=== PATIENT | female | born 1970 | race African-American/Black ===

== ENCOUNTER 2017-06-02 00:14 | Inpatient (IN) | payer MEDICAID, OTHER ==
[2017-06-02] VITALS (43 sets, daily range): BP systolic 43–115; BP diastolic 22–79
[~2017-06-02] VITALS: Ht 172.7 cm; Wt 95.7 kg
[~2017-06-02 00:14] MED LIST: CALC-1232 PO; DIPH25CA83 PO; FERR325T23 PO; FOLI-43 PO; LACT10SO6 MT; LORA-250; PROT40 PO; RISP1 PO; Thiamine Hcl PO
[2017-06-02 01:20] LABS: CLARITY URINE TURBID (CLEAR); COLOR URINE DARK YELLOW (YELLOW); GLUCOSE URINE NEGATIVE (NEGATIVE); KETONES URINE NEGATIVE (NEGATIVE); LEUKOCYTE ESTERASE URINE 3+ (NEGATIVE); NITRITE URINE POSITIVE (NEGATIVE); OCCULT BLOOD URINE 2+ (NEGATIVE); PROTEIN URINE 2+ (NEGATIVE); SPECIFIC GRAVITY URINE 1.014 (1.005-1.030); UROBILINOGEN URINE 0.2 E.U./dL (0.2-1.0)
[2017-06-02 01:31] LABS: HEMATOCRIT. 21.1 % (36.0-48.0); HEMOGLOBIN. 7.2 g/dL (12.0-16.0); MEAN CORPUSCULAR HEMOGLOBIN 27.6 pg (28.0-32.0); MEAN CORPUSCULAR VOLUME 80.6 fL (81.0-99.0); RED BLOOD CELL COUNT 2.62 mill/uL (4.2-5.4); RED CELL DISTRIBUTION WIDTH 23.7 % (11.6-14.6)
[2017-06-02 01:38] LABS: PARTIAL THROMBOPLASTIN TIME 53.1 sec (23.4-31.0); PROTHROMBIN TIME 21.4 sec (9.4-11.6)
[2017-06-02 01:44] LABS: CARBON DIOXIDE 14 mEq/L (21-32); CHLORIDE 115 mEq/L (98-107); TROPONIN I < 0.02 ng/mL (0.00-0.04)
[2017-06-02] MEDS ORDERED: DEXT 5%/0.45% NACL 1000ML 1,000 ML IV ONE (01:58)
[2017-06-02 01:59] LABS: AMMONIA 115 uMol/L (<32)
[2017-06-02] MEDS ORDERED: CEFTRIAXONE 1 G PREMIX 50 ML IV ONE (03:00)
[2017-06-02] MEDS ORDERED: LACTULOSE 20G/30ML UDC NG ONE (03:00)
[2017-06-02 05:43] LABS: NUCLEATED RED BLOOD CELLS 2 /100 WBC
[2017-06-02 05:49] LABS: PLATELET ESTIMATE NORMAL
[2017-06-02 05:51] LABS: PLATELET 206 x1000/uL (130-400)
[2017-06-02 05:52] LABS: MEAN PLATELET VOLUME 9.5 fl (7.4-10.4)
[2017-06-02] MEDS ORDERED: SODIUM CHLORIDE 0.9% 1,000 ML IV ONE (06:45)
[2017-06-02] MEDS ORDERED: LACTULOSE 20G/30ML UDC PO SCH (09:00)
[2017-06-02] MEDS ORDERED: SODIUM CHLORIDE 0.9% 1000ML BAG (SEPSIS BOLUS) IV ONE (09:15)
[2017-06-02] MEDS: RIFAXIMIN 550 MG TABLET PO SCH ×2 (09:29→16:44)
[2017-06-02] MEDS ORDERED: ALBUMIN HUMAN 25GM/100ML (25%) IV ONE (09:30)
[2017-06-02 09:39] LABS: BASOPHILS % 0.6 % (0.0-2.0); EOSINOPHILS % 0.7 % (0.0-5.0); LYMPHOCYTES % 18.1 % (20.0-50.0); MEAN CORPUSCULAR HEMOGLOBIN 27.9 pg (28.0-32.0); MEAN CORPUSCULAR VOLUME 79.9 fL (81.0-99.0); MEAN PLATELET VOLUME 8.5 fl (7.4-10.4); MONOCYTES % 7.4 % (2.0-8.0); NEUTROPHILS % 73.2 % (40.0-76.0); PLATELET 154 x1000/uL (130-400); RED BLOOD CELL COUNT 2.48 mill/uL (4.2-5.4); RED CELL DISTRIBUTION WIDTH 22.8 % (11.6-14.6)
[2017-06-02] MEDS ORDERED: SODIUM CHLORIDE 0.9% 1000ML BAG (SEPSIS BOLUS) IV SCH (09:45)
[2017-06-02] MEDS: CITRIC ACID/SODIUM CITRATE SOLN 30ML UDC NG SCH ×3 (09:45→16:44)
[2017-06-02] MEDS: MIDODRINE HCL 5MG TABLET NG SCH ×3 (09:46→16:44)
[2017-06-02 09:50] LABS: HEMATOCRIT. 19.8 % (36.0-48.0); HEMOGLOBIN. 6.9 g/dL (12.0-16.0)
[2017-06-02] MEDS ORDERED: ALBUMIN HUMAN 25GM/100ML (25%) IV SCH (10:00)
[2017-06-02 10:01] LABS: BG BASE EXCESS -13.1 mmol/L (-2.0-2.0); BG CARBOXYHEMOGLOBIN 3.2 % (0.5-1.5); BG DEOXYHEMOGLOBIN 0.8 % (0.0-5.0); BG HCO3 ACT 11.4 mmol/L (22.0-26.0); BG METHEMOGLOBIN 0.5 % (0.0-1.5); BG OXYGEN SATURATION 99.2 % (92.0-98.5); BG OXYHEMOGLOBIN 95.5 % (94.0-97.0); BG PCO2 21.7 mmHg (35.0-45.0); BG PO2 142.9 mmHg (75.0-100.0); BG SAMPLE SITE RIGHT RADIAL; BG TOTAL HEMOGLOBIN 6.3 g/dL (12.0-18.0); BG VENT MODE NASAL CANNULA
[2017-06-02 10:12] LABS: CARBON DIOXIDE 14 mEq/L (21-32); CHLORIDE 117 mEq/L (98-107)
[2017-06-02] MEDS ORDERED: IPRATROPIUM/ALBUTEROL 0.5-3(2.5)MG/3ML NEB HHN PRN (10:15)
[2017-06-02] MEDS ORDERED: PANTOPRAZOLE 80 MG in SODIUM CHLORIDE 0.9% 100 ML IV SCH (10:30)
[2017-06-02 10:44] LABS: AMMONIA 179 uMol/L (<32)
[2017-06-02] MEDS ORDERED: LIDOCAINE HCL 1% 20ML VIAL (Pyxis) INJ ONE (10:57)
[2017-06-02] MEDS: CEFEPIME 1,000 MG in DEXTROSE 5% WATER 50 ML IV SCH (11:30)
[2017-06-02] MEDS: OCTREOTIDE ACETATE 50 MCG/ML 1ML IV SCH ×2 (11:42→22:07)
[2017-06-02] MEDS: PANTOPRAZOLE 80 MG in SODIUM CHLORIDE 0.9% 100 ML IV SCH ×2 (12:54→22:06)
[2017-06-02] MEDS: LACTULOSE 300 ML in WATER FOR INJECTION,STERILE 700 ML PR SCH (14:06)
[2017-06-02] MEDS ORDERED: DEXTROSE 50% WATER 50ML SYRINGE IV SCH (15:00)
[2017-06-02] MEDS: DEXT 5%/0.9% NACL 1,000 ML IV SCH (15:07)
[2017-06-02] MEDS: IPRATROPIUM/ALBUTEROL 0.5-3(2.5)MG/3ML NEB HHN SCH ×2 (15:40→20:36)
[2017-06-02 16:32] LABS: HEPATITIS B SURFACE ANTIGEN NEGATIVE
[2017-06-02 17:00] LABS: HEPATITIS B CORE AB IGM NEGATIVE
[2017-06-02 17:02] LABS: HEPATITIS A AB IGM NEGATIVE (NEGATIVE)
[2017-06-02 23:12] LABS: HEMATOCRIT 24.2 % (36.0-48.0); HEMOGLOBIN 8.1 g/dL (12.0-16.0)
[2017-06-03] VITALS (107 sets, daily range): BP systolic 79–140; BP diastolic 45–101
[2017-06-03] MEDS: NOREPINEPHRINE 4 MG in DEXT 5% WATER 246 ML IV PRN ×2 (00:31→21:53)
[2017-06-03] MEDS: DEXT 5%/0.9% NACL 1,000 ML IV SCH (00:59)
[2017-06-03] MEDS: IPRATROPIUM/ALBUTEROL 0.5-3(2.5)MG/3ML NEB HHN SCH ×4 (02:21→20:46)
[2017-06-03] MEDS: OCTREOTIDE ACETATE 50 MCG/ML 1ML IV SCH ×3 (05:27→22:59)
[2017-06-03 05:54] LABS: HEMATOCRIT 21.8 % (36.0-48.0); HEMOGLOBIN 7.6 g/dL (12.0-16.0); MEAN CORPUSCULAR HEMOGLOBIN 28.4 pg (28.0-32.0); MEAN CORPUSCULAR VOLUME 81.8 fL (81.0-99.0); PLATELET 150 x1000/uL (130-400); RED BLOOD CELL COUNT 2.66 mill/uL (4.2-5.4); RED CELL DISTRIBUTION WIDTH 22.1 % (11.6-14.6)
[2017-06-03] MEDS ORDERED: CEFTRIAXONE 1 G PREMIX 50 ML IV SCH (06:00)
[2017-06-03 06:33] LABS: AMMONIA 183 uMol/L (<32)
[2017-06-03 06:46] LABS: CARBON DIOXIDE 11 mEq/L (21-32); CHLORIDE 119 mEq/L (98-107)
[2017-06-03] MEDS ORDERED: POTASSIUM CHLORIDE 20MEQ/PACKET NG NR (08:00)
[2017-06-03] MEDS ORDERED: KCL 20MEQ/100ML PREMIX 100 ML IV ONE (08:15)
[2017-06-03 08:37] LABS: BG BASE EXCESS -12.4 mmol/L (-2.0-2.0); BG CARBOXYHEMOGLOBIN 4.1 % (0.5-1.5); BG DEOXYHEMOGLOBIN 0.4 % (0.0-5.0); BG FRACTION INSPIRED OXYGEN 36; BG HCO3 ACT 11.6 mmol/L (22.0-26.0); BG METHEMOGLOBIN 0.6 % (0.0-1.5); BG OXYGEN SATURATION 99.6 % (92.0-98.5); BG OXYHEMOGLOBIN 94.9 % (94.0-97.0); BG PCO2 20.4 mmHg (35.0-45.0); BG PH 7.373 (7.350-7.450); BG PO2 179.7 mmHg (75.0-100.0); BG SAMPLE SITE LEFT RADIAL; BG TOTAL HEMOGLOBIN 6.4 g/dL (12.0-18.0); BG VENT MODE NASAL CANNULA
[2017-06-03] MEDS: RIFAXIMIN 550 MG TABLET PO SCH ×2 (09:00→17:51)
[2017-06-03] MEDS: CITRIC ACID/SODIUM CITRATE SOLN 30ML UDC NG SCH ×3 (09:00→17:51)
[2017-06-03] MEDS: MIDODRINE HCL 5MG TABLET NG SCH ×3 (09:00→17:00)
[2017-06-03] MEDS ORDERED: DEXT 5%/0.45% NACL KCL 20MEQ/L 1,000 ML IV SCH (09:00)
[2017-06-03] MEDS: PANTOPRAZOLE 80 MG in SODIUM CHLORIDE 0.9% 100 ML IV SCH ×2 (09:18→21:53)
[2017-06-03] MEDS: POTASSIUM CHLORIDE IV SCH (09:19)
[2017-06-03] MEDS: DEXTROSE 5% IV SCH (09:19)
[2017-06-03] MEDS: WATER IV SCH (09:19)
[2017-06-03] MEDS: SODIUM BICARBONATE IV SCH (09:19)
[2017-06-03] MEDS ORDERED: POTASSIUM CHLORIDE INJ 40 MEQ in DEXT 5% WATER 250 ML IV NR (10:00)
[2017-06-03] MEDS: CEFEPIME 1,000 MG in DEXTROSE 5% WATER 50 ML IV SCH ×2 (10:08→10:16)
[2017-06-03 10:11] LABS: INR 1.7; PROTHROMBIN TIME 18.1 sec (9.4-11.6)
[2017-06-03 10:39] LABS: HEMATOCRIT 19.8 % (36.0-48.0)
[2017-06-03 13:07] LABS: A/G RATIO 0.5 (0.7-1.7); ALBUMIN 1.9 g/dL (2.9-4.4); ALPHA-1-GLOBULIN 0.1 g/dL (0.0-0.4); ALPHA-2-GLOBULIN 0.2 g/dL (0.4-1.0); BETA GLOBULIN 1.1 g/dL (0.7-1.3); GAMMA GLOBULINS 2.5 g/dL (0.4-1.8); GLOBULIN TOTAL 3.9 g/dL (2.2-3.9); M-SPIKE Not Observed g/dL (Not Observed); TOTAL PROTEIN SERUM 5.8 g/dL (6.0-8.5)
[2017-06-03] MEDS ORDERED: SODIUM BICARBONATE 4.2% 5 MEQ/10 ML DISP.SYRIN IV ONE (13:30)
[2017-06-03] MEDS ORDERED: LIDOCAINE HCL 1% 20ML VIAL (Pyxis) INJ ONE (13:30)
[2017-06-03] MEDS: LACTULOSE 300 ML in WATER FOR INJECTION,STERILE 700 ML PR SCH (14:19)
[2017-06-03] MEDS: MEROPENEM 1000MG in NORMAL SALINE 100ML IV SCH (14:53)
[2017-06-03] MEDS: LACTULOSE 20G/30ML UDC PO SCH (18:45)
[2017-06-04] VITALS (97 sets, daily range): BP systolic 85–134; BP diastolic 35–83
[2017-06-04] MEDS: SODIUM BICARBONATE IV SCH (00:15)
[2017-06-04] MEDS: WATER IV SCH (00:15)
[2017-06-04] MEDS: LACTULOSE 20G/30ML UDC PO SCH ×4 (00:15→17:15)
[2017-06-04] MEDS: POTASSIUM CHLORIDE IV SCH (00:15)
[2017-06-04] MEDS: MEROPENEM 1000MG in NORMAL SALINE 100ML IV SCH ×2 (00:15→12:42)
[2017-06-04] MEDS: DEXTROSE 5% IV SCH (00:15)
[2017-06-04] MEDS: IPRATROPIUM/ALBUTEROL 0.5-3(2.5)MG/3ML NEB HHN SCH ×4 (01:59→21:15)
[2017-06-04 05:48] LABS: BASOPHILS % 0.3 % (0.0-2.0); EOSINOPHILS % 1.3 % (0.0-5.0); HEMOGLOBIN. 8.5 g/dL (12.0-16.0); LYMPHOCYTES % 15.4 % (20.0-50.0); MEAN CORPUSCULAR HEMOGLOBIN 29.4 pg (28.0-32.0); MEAN CORPUSCULAR VOLUME 83.2 fL (81.0-99.0); MEAN PLATELET VOLUME 9.5 fl (7.4-10.4); PLATELET 146 x1000/uL (130-400); RED BLOOD CELL COUNT 2.88 mill/uL (4.2-5.4); RED CELL DISTRIBUTION WIDTH 20.5 % (11.6-14.6)
[2017-06-04 06:13] LABS: CARBON DIOXIDE 14 mEq/L (21-32); CHLORIDE 119 mEq/L (98-107); PHOSPHORUS 3.4 mg/dL (2.5-4.9)
[2017-06-04] MEDS: OCTREOTIDE ACETATE 50 MCG/ML 1ML IV SCH ×3 (06:53→21:47)
[2017-06-04] MEDS: PANTOPRAZOLE 80 MG in SODIUM CHLORIDE 0.9% 100 ML IV SCH ×2 (06:57→16:40)
[2017-06-04 07:18] LABS: ALBUMIN URINE Note: % (.); TOTAL PROTEIN RANDOM URINE 101.4 mg/dL (Not Estab.)
[2017-06-04 07:20] LABS: AMMONIA 149 uMol/L (<32)
[2017-06-04] MEDS: RIFAXIMIN 550 MG TABLET PO SCH ×2 (08:29→17:15)
[2017-06-04] MEDS: CITRIC ACID/SODIUM CITRATE SOLN 30ML UDC NG SCH ×3 (08:29→17:15)
[2017-06-04] MEDS: FLUCONAZOLE 200 MG/100ML BAG 100 ML IV SCH (08:29)
[2017-06-04] MEDS: MIDODRINE HCL 5MG TABLET NG SCH ×3 (08:30→17:15)
[2017-06-04] MEDS ORDERED: POTASSIUM CHLORIDE 20MEQ/PACKET PO SCH (08:45)
[2017-06-04] MEDS: LACTULOSE 300 ML in WATER FOR INJECTION,STERILE 700 ML PR SCH (09:21)
[2017-06-04] MEDS: DEXT 5%/0.45% NACL KCL 40MEQ/L 1,000 ML IV SCH (10:55)
[2017-06-04] MEDS ORDERED: SORBITOL 70% SOLN 30ML PO NR (17:00)
[2017-06-04] MEDS: FOLIC ACID 1MG TABLET PO SCH (17:15)
[2017-06-04] MEDS: THIAMINE HCL 100MG TABLET PO SCH (17:15)
[2017-06-04] MEDS: MULTIVITAMINS,THER W-MINERALS TABLET PO SCH (17:17)
[2017-06-04] MEDS: NOREPINEPHRINE 4 MG in DEXT 5% WATER 246 ML IV PRN (17:35)
[2017-06-04 18:15] LABS: T4 FREE 0.68 ng/dL (0.76-1.46)
[2017-06-04 18:44] LABS: VITAMIN B12 SERUM > 2000 pg/mL (211-911)
[2017-06-04] MEDS: LEVETIRACETAM 500 MG in SODIUM CHLORIDE 0.9% 100 ML IV SCH (21:14)
[2017-06-05] VITALS (85 sets, daily range): BP systolic 86–153; BP diastolic 27–105
[2017-06-05] MEDS: LACTULOSE 20G/30ML UDC PO SCH ×4 (00:50→16:53)
[2017-06-05] MEDS: NOREPINEPHRINE 4 MG in DEXT 5% WATER 246 ML IV PRN ×2 (00:51→18:17)
[2017-06-05] MEDS: PANTOPRAZOLE 80 MG in SODIUM CHLORIDE 0.9% 100 ML IV SCH ×3 (00:51→22:14)
[2017-06-05] MEDS: MEROPENEM 1000MG in NORMAL SALINE 100ML IV SCH ×2 (00:54→14:00)
[2017-06-05] MEDS: IPRATROPIUM/ALBUTEROL 0.5-3(2.5)MG/3ML NEB HHN SCH ×4 (03:15→20:27)
[2017-06-05 04:58] LABS: HEMATOCRIT. 23.6 % (36.0-48.0); HEMOGLOBIN. 8.4 g/dL (12.0-16.0); MEAN CORPUSCULAR HEMOGLOBIN 29.2 pg (28.0-32.0); RED BLOOD CELL COUNT 2.87 mill/uL (4.2-5.4); RED CELL DISTRIBUTION WIDTH 21.2 % (11.6-14.6)
[2017-06-05 05:00] LABS: AMMONIA 84 uMol/L (<32)
[2017-06-05 05:14] LABS: CARBON DIOXIDE 18 mEq/L (21-32); CHLORIDE 124 mEq/L (98-107); PHOSPHORUS 2.8 mg/dL (2.5-4.9)
[2017-06-05] MEDS: DEXT 5%/0.45% NACL KCL 40MEQ/L 1,000 ML IV SCH (05:19)
[2017-06-05] MEDS: OCTREOTIDE ACETATE 50 MCG/ML 1ML IV SCH ×2 (05:19→14:52)
[2017-06-05] MEDS ORDERED: ALBUMIN HUMAN 25GM/100ML (25%) IV NR (08:15)
[2017-06-05] MEDS ORDERED: DEXT 5% WATER + KCL 40MEQ/L 1,000 ML IV SCH (08:15)
[2017-06-05] MEDS: FLUCONAZOLE 200 MG/100ML BAG 100 ML IV SCH (09:00)
[2017-06-05] MEDS: RIFAXIMIN 550 MG TABLET PO SCH ×2 (09:41→16:52)
[2017-06-05] MEDS: FOLIC ACID 1MG TABLET PO SCH (09:41)
[2017-06-05] MEDS: MIDODRINE HCL 5MG TABLET NG SCH ×3 (09:42→16:53)
[2017-06-05] MEDS: MULTIVITAMINS,THER W-MINERALS TABLET PO SCH (09:42)
[2017-06-05] MEDS: THIAMINE HCL 100MG TABLET PO SCH (09:42)
[2017-06-05] MEDS: CITRIC ACID/SODIUM CITRATE SOLN 30ML UDC NG SCH ×3 (09:43→16:53)
[2017-06-05] MEDS: LEVETIRACETAM 500 MG in SODIUM CHLORIDE 0.9% 100 ML IV SCH ×2 (09:43→22:14)
[2017-06-05] MEDS: POTASSIUM CHLORIDE INJ 40 MEQ in DEXTROSE 5% WATER 1,000 ML IV SCH (10:13)
[2017-06-05 12:09] LABS: PLATELET ESTIMATE SLIGHTLY DECREASED
[2017-06-05 12:10] LABS: PLATELET 129 x1000/uL (130-400)
[2017-06-05] MEDS: OCTREOTIDE ACETATE 50 MCG/ML 1ML SUBCUT SCH (22:14)
[2017-06-06] VITALS (69 sets, daily range): BP systolic 97–126; BP diastolic 53–83
[2017-06-06] MEDS: LACTULOSE 20G/30ML UDC PO SCH ×5 (00:39→23:38)
[2017-06-06] MEDS: MEROPENEM 1000MG in NORMAL SALINE 100ML IV SCH ×2 (00:39→13:33)
[2017-06-06] MEDS: IPRATROPIUM/ALBUTEROL 0.5-3(2.5)MG/3ML NEB HHN SCH ×4 (00:44→20:24)
[2017-06-06 05:40] LABS: HEMATOCRIT. 25.7 % (36.0-48.0); HEMOGLOBIN. 8.9 g/dL (12.0-16.0); MEAN CORPUSCULAR HEMOGLOBIN 28.7 pg (28.0-32.0); MEAN CORPUSCULAR VOLUME 83.1 fL (81.0-99.0); RED BLOOD CELL COUNT 3.09 mill/uL (4.2-5.4); RED CELL DISTRIBUTION WIDTH 22.7 % (11.6-14.6)
[2017-06-06] MEDS: PANTOPRAZOLE 80 MG in SODIUM CHLORIDE 0.9% 100 ML IV SCH ×3 (05:52→20:37)
[2017-06-06] MEDS: POTASSIUM CHLORIDE INJ 40 MEQ in DEXTROSE 5% WATER 1,000 ML IV SCH ×2 (05:52→23:38)
[2017-06-06 06:11] LABS: CARBON DIOXIDE 20 mEq/L (21-32); CHLORIDE 124 mEq/L (98-107); PHOSPHORUS 2.5 mg/dL (2.5-4.9)
[2017-06-06 07:04] LABS: AMMONIA 71 uMol/L (<32)
[2017-06-06] MEDS: OCTREOTIDE ACETATE 50 MCG/ML 1ML SUBCUT SCH ×3 (07:24→22:36)
[2017-06-06] MEDS: FLUCONAZOLE 200 MG/100ML BAG 100 ML IV SCH (08:39)
[2017-06-06] MEDS: CITRIC ACID/SODIUM CITRATE SOLN 30ML UDC NG SCH ×3 (09:55→18:26)
[2017-06-06] MEDS: LEVETIRACETAM 500 MG in SODIUM CHLORIDE 0.9% 100 ML IV SCH ×2 (09:55→21:54)
[2017-06-06] MEDS: MIDODRINE HCL 5MG TABLET NG SCH ×3 (09:55→17:40)
[2017-06-06] MEDS: THIAMINE HCL 100MG TABLET PO SCH (09:56)
[2017-06-06] MEDS: MULTIVITAMINS,THER W-MINERALS TABLET PO SCH (09:56)
[2017-06-06] MEDS: RIFAXIMIN 550 MG TABLET PO SCH ×2 (09:56→17:39)
[2017-06-06] MEDS: FOLIC ACID 1MG TABLET PO SCH (09:56)
[2017-06-06 10:21] LABS: NUCLEATED RED BLOOD CELLS 2 /100 WBC
[2017-06-06 10:22] LABS: MEAN PLATELET VOLUME 9.7 fl (7.4-10.4); PLATELET ESTIMATE NORMAL
[2017-06-06 10:23] LABS: PLATELET 123 x1000/uL (130-400)
[2017-06-06] MEDS: NOREPINEPHRINE 4 MG in DEXT 5% WATER 246 ML IV PRN (10:36)
[2017-06-07] VITALS (56 sets, daily range): BP systolic 97–127; BP diastolic 53–84
[2017-06-07] MEDS: MEROPENEM 1000MG in NORMAL SALINE 100ML IV SCH ×2 (00:13→12:55)
[2017-06-07] MEDS: IPRATROPIUM/ALBUTEROL 0.5-3(2.5)MG/3ML NEB HHN SCH ×4 (02:36→20:25)
[2017-06-07] MEDS: LACTULOSE 20G/30ML UDC PO SCH ×4 (05:19→23:06)
[2017-06-07] MEDS: OCTREOTIDE ACETATE 50 MCG/ML 1ML SUBCUT SCH ×2 (05:19→13:25)
[2017-06-07 07:03] LABS: CARBON DIOXIDE 24 mEq/L (21-32); CHLORIDE 125 mEq/L (98-107); PHOSPHORUS 2.3 mg/dL (2.5-4.9)
[2017-06-07 07:08] LABS: AMMONIA 49 uMol/L (<32)
[2017-06-07 07:52] LABS: BASOPHILS % 0.6 % (0.0-2.0); EOSINOPHILS % 1.3 % (0.0-5.0); HEMATOCRIT. 23.6 % (36.0-48.0); HEMOGLOBIN. 8.1 g/dL (12.0-16.0); LYMPHOCYTES % 16.2 % (20.0-50.0); MEAN CORPUSCULAR HEMOGLOBIN 28.4 pg (28.0-32.0); MEAN CORPUSCULAR VOLUME 82.5 fL (81.0-99.0); NEUTROPHILS % 72.9 % (40.0-76.0); RED BLOOD CELL COUNT 2.86 mill/uL (4.2-5.4)
[2017-06-07] MEDS: FLUCONAZOLE 200 MG/100ML BAG 100 ML IV SCH (08:00)
[2017-06-07] MEDS: RIFAXIMIN 550 MG TABLET PO SCH ×2 (09:00→17:04)
[2017-06-07] MEDS: MIDODRINE HCL 5MG TABLET NG SCH ×3 (09:00→17:08)
[2017-06-07] MEDS: MULTIVITAMINS,THER W-MINERALS TABLET PO SCH (09:00)
[2017-06-07] MEDS: THIAMINE HCL 100MG TABLET PO SCH (09:00)
[2017-06-07] MEDS: LEVETIRACETAM 500 MG in SODIUM CHLORIDE 0.9% 100 ML IV SCH ×2 (09:00→21:46)
[2017-06-07] MEDS: CITRIC ACID/SODIUM CITRATE SOLN 30ML UDC NG SCH ×3 (09:00→17:04)
[2017-06-07] MEDS: FOLIC ACID 1MG TABLET PO SCH (09:00)
[2017-06-07] MEDS: PANTOPRAZOLE 80 MG in SODIUM CHLORIDE 0.9% 100 ML IV SCH (10:06)
[2017-06-07 10:36] LABS: PLATELET ESTIMATE SLIGHTLY DECREASED
[2017-06-07 10:37] LABS: MEAN PLATELET VOLUME 10.4 fl (7.4-10.4); PLATELET 118 x1000/uL (130-400)
[2017-06-07] MEDS ORDERED: ALBUMIN HUMAN 25GM/100ML (25%) IV NR (13:15)
[2017-06-07] MEDS: POTASSIUM CHLORIDE INJ 40 MEQ in DEXT 5%/0.2% NACL 1,000 ML IV SCH (14:00)
[2017-06-07] MEDS ORDERED: POTASSIUM PHOS,M-BASIC-D-BASIC 20 MMOL in DEXT 5% WATER 243.3333 ML IV NR (15:00)
[2017-06-08] VITALS (38 sets, daily range): BP systolic 98–133; BP diastolic 54–87
[2017-06-08] MEDS: OCTREOTIDE ACETATE 50 MCG/ML 1ML SUBCUT SCH ×4 (00:03→22:01)
[2017-06-08] MEDS: POTASSIUM CHLORIDE INJ 40 MEQ in DEXT 5%/0.2% NACL 1,000 ML IV SCH (00:03)
[2017-06-08] MEDS: MEROPENEM 1000MG in NORMAL SALINE 100ML IV SCH ×2 (00:06→12:56)
[2017-06-08] MEDS: PANTOPRAZOLE 80 MG in SODIUM CHLORIDE 0.9% 100 ML IV SCH ×3 (01:27→19:46)
[2017-06-08] MEDS: IPRATROPIUM/ALBUTEROL 0.5-3(2.5)MG/3ML NEB HHN SCH ×4 (01:38→20:43)
[2017-06-08] MEDS: LACTULOSE 20G/30ML UDC PO SCH ×4 (05:25→23:28)
[2017-06-08 06:21] LABS: BASOPHILS % 0.9 % (0.0-2.0); EOSINOPHILS % 1.9 % (0.0-5.0); HEMATOCRIT. 21.5 % (36.0-48.0); HEMOGLOBIN. 7.4 g/dL (12.0-16.0); LYMPHOCYTES % 15.8 % (20.0-50.0); MEAN CORPUSCULAR HEMOGLOBIN 28.7 pg (28.0-32.0); MEAN CORPUSCULAR VOLUME 83.6 fL (81.0-99.0); MONOCYTES % 8.5 % (2.0-8.0); NEUTROPHILS % 72.9 % (40.0-76.0); RED BLOOD CELL COUNT 2.58 mill/uL (4.2-5.4); RED CELL DISTRIBUTION WIDTH 22.8 % (11.6-14.6)
[2017-06-08 06:34] LABS: PHOSPHORUS 2.9 mg/dL (2.5-4.9)
[2017-06-08 06:37] LABS: AMMONIA 42 uMol/L (<32)
[2017-06-08] MEDS: FLUCONAZOLE 200 MG/100ML BAG 100 ML IV SCH (08:00)
[2017-06-08] MEDS: LEVETIRACETAM 500 MG in SODIUM CHLORIDE 0.9% 100 ML IV SCH ×2 (09:00→21:00)
[2017-06-08] MEDS: CITRIC ACID/SODIUM CITRATE SOLN 30ML UDC NG SCH ×3 (09:00→16:59)
[2017-06-08] MEDS: DEXT 5% WATER + KCL 20MEQ/L 1,000 ML IV SCH ×2 (09:00→23:54)
[2017-06-08] MEDS: RIFAXIMIN 550 MG TABLET PO SCH ×2 (09:00→17:00)
[2017-06-08] MEDS: MIDODRINE HCL 5MG TABLET NG SCH ×3 (09:00→16:59)
[2017-06-08] MEDS: MULTIVITAMINS,THER W-MINERALS TABLET PO SCH (09:00)
[2017-06-08] MEDS: THIAMINE HCL 100MG TABLET PO SCH (09:00)
[2017-06-08] MEDS: FOLIC ACID 1MG TABLET PO SCH (09:00)
[2017-06-08 12:32] LABS: PLATELET 128 x1000/uL (130-400)
[2017-06-09] VITALS (55 sets, daily range): BP systolic 89–151; BP diastolic 23–100
[2017-06-09] MEDS: MEROPENEM 1000MG in NORMAL SALINE 100ML IV SCH ×2 (00:53→12:33)
[2017-06-09] MEDS: IPRATROPIUM/ALBUTEROL 0.5-3(2.5)MG/3ML NEB HHN SCH ×3 (02:23→20:25)
[2017-06-09] MEDS: PANTOPRAZOLE 80 MG in SODIUM CHLORIDE 0.9% 100 ML IV SCH ×2 (05:24→15:29)
[2017-06-09] MEDS: LACTULOSE 20G/30ML UDC PO SCH ×3 (05:30→18:05)
[2017-06-09] MEDS: OCTREOTIDE ACETATE 50 MCG/ML 1ML SUBCUT SCH ×3 (05:30→21:16)
[2017-06-09 06:27] LABS: BASOPHILS % 1.1 % (0.0-2.0); EOSINOPHILS % 2.4 % (0.0-5.0); HEMOGLOBIN. 7.9 g/dL (12.0-16.0); LYMPHOCYTES % 16.9 % (20.0-50.0); MEAN CORPUSCULAR HEMOGLOBIN 28.4 pg (28.0-32.0); MEAN CORPUSCULAR VOLUME 82.5 fL (81.0-99.0); MEAN PLATELET VOLUME 9.5 fl (7.4-10.4); MONOCYTES % 7.9 % (2.0-8.0); NEUTROPHILS % 71.7 % (40.0-76.0); PLATELET 108 x1000/uL (130-400); RED BLOOD CELL COUNT 2.79 mill/uL (4.2-5.4); RED CELL DISTRIBUTION WIDTH 22.6 % (11.6-14.6)
[2017-06-09 06:29] LABS: AMMONIA 41 uMol/L (<32)
[2017-06-09 06:31] LABS: INR 2.4; PARTIAL THROMBOPLASTIN TIME 50.2 sec (23.4-31.0); PROTHROMBIN TIME 24.8 sec (9.4-11.6)
[2017-06-09 07:54] LABS: CARBON DIOXIDE 22 mEq/L (21-32); CHLORIDE 125 mEq/L (98-107)
[2017-06-09] MEDS: CITRIC ACID/SODIUM CITRATE SOLN 30ML UDC NG SCH ×3 (09:54→18:08)
[2017-06-09] MEDS: FOLIC ACID 1MG TABLET PO SCH (09:55)
[2017-06-09] MEDS: RIFAXIMIN 550 MG TABLET PO SCH ×2 (09:55→18:05)
[2017-06-09] MEDS: MULTIVITAMINS,THER W-MINERALS TABLET PO SCH (09:55)
[2017-06-09] MEDS: THIAMINE HCL 100MG TABLET PO SCH (09:55)
[2017-06-09] MEDS: MIDODRINE HCL 5MG TABLET NG SCH ×3 (09:55→18:05)
[2017-06-09] MEDS: DEXTROSE 5% WATER 1,000 ML IV SCH ×2 (09:58→19:55)
[2017-06-09] MEDS: FLUCONAZOLE 200 MG/100ML BAG 100 ML IV SCH (09:59)
[2017-06-09] MEDS: LEVETIRACETAM 500 MG in SODIUM CHLORIDE 0.9% 100 ML IV SCH ×2 (09:59→21:16)
[2017-06-09] MEDS ORDERED: PHYTONADIONE 10MG/ML AMP SUBCUT NR (10:00)
[2017-06-09 18:51] LABS: PROTHROMBIN TIME 20.4 sec (9.4-11.6)
[2017-06-09] MEDS ORDERED: PHYTONADIONE 10MG/ML AMP SUBCUT SCH (21:45)
[2017-06-10] VITALS (63 sets, daily range): BP systolic 83–146; BP diastolic 35–87
[2017-06-10] MEDS: LACTULOSE 20G/30ML UDC PO SCH ×4 (00:52→17:05)
[2017-06-10] MEDS: PANTOPRAZOLE 80 MG in SODIUM CHLORIDE 0.9% 100 ML IV SCH (00:53)
[2017-06-10] MEDS: MEROPENEM 1000MG in NORMAL SALINE 100ML IV SCH ×2 (00:53→14:48)
[2017-06-10] MEDS: IPRATROPIUM/ALBUTEROL 0.5-3(2.5)MG/3ML NEB HHN SCH ×4 (01:41→20:46)
[2017-06-10 05:58] LABS: BASOPHILS % 1.1 % (0.0-2.0); EOSINOPHILS % 2.7 % (0.0-5.0); LYMPHOCYTES % 19.5 % (20.0-50.0); MEAN CORPUSCULAR HEMOGLOBIN 29.5 pg (28.0-32.0); MEAN CORPUSCULAR VOLUME 82.1 fL (81.0-99.0); MEAN PLATELET VOLUME 9.9 fl (7.4-10.4); MONOCYTES % 11.5 % (2.0-8.0); NEUTROPHILS % 65.2 % (40.0-76.0); PLATELET 93 x1000/uL (130-400); RED BLOOD CELL COUNT 2.31 mill/uL (4.2-5.4); RED CELL DISTRIBUTION WIDTH 22.2 % (11.6-14.6)
[2017-06-10] MEDS: DEXTROSE 5% WATER 1,000 ML IV SCH ×2 (05:58→14:48)
[2017-06-10] MEDS: OCTREOTIDE ACETATE 50 MCG/ML 1ML SUBCUT SCH (05:58)
[2017-06-10 06:00] LABS: INR 1.8; PARTIAL THROMBOPLASTIN TIME 41.5 sec (23.4-31.0); PROTHROMBIN TIME 18.8 sec (9.4-11.6)
[2017-06-10] MEDS ORDERED: PHYTONADIONE 10MG/ML AMP SUBCUT SCH (06:00)
[2017-06-10 06:14] LABS: HEMOGLOBIN. 6.8 g/dL (12.0-16.0)
[2017-06-10 06:35] LABS: AMMONIA 37 uMol/L (<32)
[2017-06-10 07:01] LABS: CHLORIDE 122 mEq/L (98-107)
[2017-06-10 07:11] LABS: CARBON DIOXIDE 23 mEq/L (21-32)
[2017-06-10] MEDS: MULTIVITAMINS,THER W-MINERALS TABLET PO SCH ×2 (08:24→14:32)
[2017-06-10] MEDS: RIFAXIMIN 550 MG TABLET PO SCH ×2 (08:24→17:05)
[2017-06-10] MEDS: THIAMINE HCL 100MG TABLET PO SCH ×2 (08:24→14:32)
[2017-06-10] MEDS: MIDODRINE HCL 5MG TABLET NG SCH ×3 (08:25→17:06)
[2017-06-10] MEDS: FOLIC ACID 1MG TABLET PO SCH ×2 (08:25→14:32)
[2017-06-10] MEDS: CITRIC ACID/SODIUM CITRATE SOLN 30ML UDC NG SCH ×3 (08:25→17:05)
[2017-06-10] MEDS: LEVETIRACETAM 500 MG in SODIUM CHLORIDE 0.9% 100 ML IV SCH ×2 (09:18→21:26)
[2017-06-10] MEDS: FLUCONAZOLE 200 MG/100ML BAG 100 ML IV SCH (09:18)
[2017-06-10] MEDS ORDERED: LIDOCAINE HCL 1% 20ML VIAL (Pyxis) INJ ONE (13:22)
[2017-06-10] MEDS ORDERED: SODIUM BICARBONATE 4% (2.4MEQ) 5ML VIAL IV ONE (13:22)
[2017-06-10 20:12] LABS: HEMOGLOBIN 9.2 g/dL (12.0-16.0)
[2017-06-11] VITALS (12 sets, daily range): BP systolic 93–114; BP diastolic 55–81
[2017-06-11] MEDS: LACTULOSE 20G/30ML UDC PO SCH ×5 (00:17→23:44)
[2017-06-11] MEDS: DEXTROSE 5% WATER 1,000 ML IV SCH ×3 (02:23→20:30)
[2017-06-11] MEDS: IPRATROPIUM/ALBUTEROL 0.5-3(2.5)MG/3ML NEB HHN SCH ×4 (02:30→20:49)
[2017-06-11 07:59] LABS: AMMONIA 79 uMol/L (<32)
[2017-06-11 08:06] LABS: BASOPHILS % 0.9 % (0.0-2.0); EOSINOPHILS % 2.6 % (0.0-5.0); HEMATOCRIT. 24.5 % (36.0-48.0); HEMOGLOBIN. 8.5 g/dL (12.0-16.0); LYMPHOCYTES % 16.9 % (20.0-50.0); MEAN CORPUSCULAR HEMOGLOBIN 28.8 pg (28.0-32.0); MEAN CORPUSCULAR VOLUME 82.6 fL (81.0-99.0); MEAN PLATELET VOLUME 10.3 fl (7.4-10.4); MONOCYTES % 8.7 % (2.0-8.0); NEUTROPHILS % 70.9 % (40.0-76.0); PLATELET 97 x1000/uL (130-400); RED BLOOD CELL COUNT 2.96 mill/uL (4.2-5.4); RED CELL DISTRIBUTION WIDTH 20.2 % (11.6-14.6)
[2017-06-11] MEDS: CITRIC ACID/SODIUM CITRATE SOLN 30ML UDC NG SCH ×3 (08:11→17:36)
[2017-06-11] MEDS: RIFAXIMIN 550 MG TABLET PO SCH ×2 (08:11→17:36)
[2017-06-11] MEDS: FOLIC ACID 1MG TABLET PO SCH (08:11)
[2017-06-11] MEDS: MIDODRINE HCL 5MG TABLET NG SCH ×3 (08:12→17:36)
[2017-06-11] MEDS: MULTIVITAMINS,THER W-MINERALS TABLET PO SCH (08:12)
[2017-06-11] MEDS: THIAMINE HCL 100MG TABLET PO SCH (08:12)
[2017-06-11] MEDS: FLUCONAZOLE 200 MG/100ML BAG 100 ML IV SCH (08:13)
[2017-06-11] MEDS: LEVETIRACETAM 500 MG in SODIUM CHLORIDE 0.9% 100 ML IV SCH ×2 (09:33→21:11)
[2017-06-11 11:58] LABS: CARBON DIOXIDE 24 mEq/L (21-32); CHLORIDE 119 mEq/L (98-107); PHOSPHORUS 2.7 mg/dL (2.5-4.9)
[2017-06-11] MEDS: CEFAZOLIN 1000MG PREMIX 50 ML IV SCH ×2 (13:06→20:26)
[2017-06-11] MEDS: BUDESONIDE 0.5MG/2ML NEB HHN SCH ×2 (16:54→20:49)
[2017-06-12] VITALS (13 sets, daily range): BP systolic 100–120; BP diastolic 48–91
[2017-06-12] MEDS: IPRATROPIUM/ALBUTEROL 0.5-3(2.5)MG/3ML NEB HHN SCH ×3 (01:21→14:27)
[2017-06-12] MEDS: CEFAZOLIN 1000MG PREMIX 50 ML IV SCH ×2 (04:44→13:39)
[2017-06-12] MEDS: LACTULOSE 20G/30ML UDC PO SCH ×2 (05:23→13:39)
[2017-06-12 06:34] LABS: AMMONIA 49 uMol/L (<32)
[2017-06-12 07:06] LABS: BASOPHILS % 0.6 % (0.0-2.0); CARBON DIOXIDE 23 mEq/L (21-32); CHLORIDE 112 mEq/L (98-107); EOSINOPHILS % 1.5 % (0.0-5.0); HEMATOCRIT. 24.6 % (36.0-48.0); HEMOGLOBIN. 8.4 g/dL (12.0-16.0); LYMPHOCYTES % 19.8 % (20.0-50.0); MEAN CORPUSCULAR HEMOGLOBIN 28.4 pg (28.0-32.0); MEAN CORPUSCULAR VOLUME 83.1 fL (81.0-99.0); MONOCYTES % 9.9 % (2.0-8.0); NEUTROPHILS % 68.2 % (40.0-76.0); RED BLOOD CELL COUNT 2.96 mill/uL (4.2-5.4); RED CELL DISTRIBUTION WIDTH 20.4 % (11.6-14.6)
[2017-06-12 07:20] LABS: PHOSPHORUS 2.8 mg/dL (2.5-4.9)
[2017-06-12] MEDS: BUDESONIDE 0.5MG/2ML NEB HHN SCH (08:40)
[2017-06-12] MEDS: THIAMINE HCL 100MG TABLET PO SCH (09:47)
[2017-06-12] MEDS: LEVETIRACETAM 500 MG in SODIUM CHLORIDE 0.9% 100 ML IV SCH (09:47)
[2017-06-12] MEDS: CITRIC ACID/SODIUM CITRATE SOLN 30ML UDC NG SCH ×3 (09:47→17:37)
[2017-06-12] MEDS: RIFAXIMIN 550 MG TABLET PO SCH ×2 (09:47→17:38)
[2017-06-12] MEDS: FOLIC ACID 1MG TABLET PO SCH (09:47)
[2017-06-12] MEDS: MIDODRINE HCL 5MG TABLET NG SCH ×3 (09:48→17:38)
[2017-06-12] MEDS: MULTIVITAMINS,THER W-MINERALS TABLET PO SCH (09:48)
[2017-06-12] MEDS ORDERED: ALBUMIN HUMAN 25GM/100ML (25%) IV NR (10:00)
[2017-06-12] MEDS ORDERED: FUROSEMIDE 40MG/4ML VIAL IVP SCH (10:00)
[2017-06-12] MEDS ORDERED: PULM50 HHN (12:15)
[2017-06-12] MEDS ORDERED: THIA100T72 PO (12:15)
[2017-06-12] MEDS ORDERED: RIFA550T PO (12:15)
[2017-06-12] MEDS ORDERED: FOLI-43 PO (12:15)
[2017-06-12] MEDS ORDERED: MIDO5TAB NG (12:15)
[2017-06-12] MEDS ORDERED: DUONEB3 ML HHN (12:15)
[2017-06-12 14:27] LABS: PLATELET 133 x1000/uL (130-400)
[2017-06-12] MEDS ORDERED: LEVETIRACETAM 500MG TABLET PO SCH (21:00)
== END 2017-06-12 18:08 | DRG 720 ==
LOC: ER 00:22 → 5EST 03:04 → ENRESERV 04:13 → CVICU 10:40 → 5EST 06-10 23:25
PROVIDERS: ADMIT Internal Medicine; ATTEND Internal Medicine
PROC: 02HV33Z Insertion of Infusion Device into Superior Vena Cava, Percutaneous Approach (ICD-10-PCS; 2017-06-02)
PROC: B548ZZA Ultrasonography of Superior Vena Cava, Guidance (ICD-10-PCS; 2017-06-02)
PROC: 30233N1 Transfusion of Nonautologous Red Blood Cells into Peripheral Vein, Percutaneous Approach (ICD-10-PCS; 2017-06-02)
PROC: 0W9G3ZZ Drainage of Peritoneal Cavity, Percutaneous Approach (ICD-10-PCS; 2017-06-03)
PROC: 30233L1 Transfusion of Nonautologous Fresh Plasma into Peripheral Vein, Percutaneous Approach (ICD-10-PCS; 2017-06-03)
PROC: 30233K1 Transfusion of Nonautologous Frozen Plasma into Peripheral Vein, Percutaneous Approach (ICD-10-PCS; 2017-06-03)
PROC: 0W9G3ZZ Drainage of Peritoneal Cavity, Percutaneous Approach (ICD-10-PCS; principal; 2017-06-10)
DX: A41.9 Sepsis, unspecified organism (principal); N17.0 Acute kidney failure with tubular necrosis; R65.21 Severe sepsis with septic shock; J69.0 Pneumonitis due to inhalation of food and vomit; E43 Unspecified severe protein-calorie malnutrition; G92 Toxic encephalopathy; N18.6 End stage renal disease; D69.6 Thrombocytopenia, unspecified; K70.31 Alcoholic cirrhosis of liver with ascites; K70.40 Alcoholic hepatic failure without coma; E87.0 Hyperosmolality and hypernatremia; D68.4 Acquired coagulation factor deficiency; I12.0 Hypertensive chronic kidney disease with stage 5 chronic kidney disease or end stage renal disease; D50.9 Iron deficiency anemia, unspecified; D25.9 Leiomyoma of uterus, unspecified; K85.90 Acute pancreatitis without necrosis or infection, unspecified; N39.0 Urinary tract infection, site not specified; E87.5 Hyperkalemia; B96.20 Unspecified Escherichia coli [E. coli] as the cause of diseases classified elsewhere; E86.1 Hypovolemia; E87.6 Hypokalemia; F10.10 Alcohol abuse, uncomplicated; F20.9 Schizophrenia, unspecified; G31.9 Degenerative disease of nervous system, unspecified; G40.909 Epilepsy, unspecified, not intractable, without status epilepticus; J44.0 Chronic obstructive pulmonary disease with (acute) lower respiratory infection; N92.0 Excessive and frequent menstruation with regular cycle; Z82.49 Family history of ischemic heart disease and other diseases of the circulatory system; Z83.3 Family history of diabetes mellitus; Z86.73 Personal history of transient ischemic attack (TIA), and cerebral infarction without residual deficits; Z99.81 Dependence on supplemental oxygen; Z88.5 Allergy status to narcotic agent; Z79.899 Other long term (current) drug therapy; Z88.8 Allergy status to other drugs, medicaments and biological substances; Z68.32 Body mass index [BMI] 32.0-32.9, adult
CPT/HCPCS: 36415; 36430; 36569; 36600; 43760; 49083; 51702; 70450; 70551; 71010; 76700; 76705; 76770; 76937; 80048; 80053; 80076; 81001; 81025; 82105; 82140; 82150; 82248; 82270; 82375; 82553; 82570; 82607; 82746; 82805; 82945; 82962; 83036; 83605; 83615; 83690; 83735; 84100; 84155; 84156; 84157; 84165; 84166; 84300; 84439; 84443; 84478; 84481; 84484; 85014; 85018; 85025; 85027; 85610; 85730; 86705; 86709; 86803; 86850; 86900; 86920; 86927; 87040; 87070; 87077; 87086; 87106; 87186; 87205; 87340; 88108; 88312; 89050; 92610; 93005; 94640; 94664; 96361; 96365; 97162; 97166; 97167; 99291; A6261; C1725; C9113; J0690; J0692; J0696; J1450; J1940; J1953; J2185; J2354; J3430; J3480; J3490; J7030; J7042; J7050; J7060; J7070; J7620; J7626; P9016; P9017; P9047; A4315

== ENCOUNTER 2017-06-27 09:16 | Inpatient (IN) | payer MEDICAID ==
[~2017-06-27] VITALS: Ht 167.6 cm; Wt 94.8 kg
[2017-06-27] VITALS (56 sets, daily range): BP systolic 74–128; BP diastolic 41–73
[~2017-06-27 09:16] MED LIST changes: +DUONEB3 ML HHN; -LORA-250; +MIDO5TAB NG; +PULM50 HHN; +RIFA550T PO; +THIA100T72 PO
[2017-06-27] MEDS ORDERED: DEXTROSE 50% WATER 50ML SYRINGE IV ONE (09:42)
[2017-06-27] MEDS ORDERED: SUCCINYLCHOLINE CHLORIDE 200MG/10ML VIAL IV ONE ×2 (10:00→10:30)
[2017-06-27] MEDS ORDERED: LEVOFLOXACIN 750MG PREMIX 150 ML IV ONE (10:00)
[2017-06-27] MEDS ORDERED: SODIUM CHLORIDE 0.9% 1000ML BAG (SEPSIS BOLUS) IV ONE (10:00)
[2017-06-27] MEDS ORDERED: PIPERACILLIN/TAZ 3.375G PREMIX 50 ML IV ONE (10:00)
[2017-06-27 10:35] LABS: CARBON DIOXIDE 13 mEq/L (21-32); CHLORIDE 108 mEq/L (98-107); MEAN CORPUSCULAR HEMOGLOBIN 29.3 pg (28.0-32.0); MEAN CORPUSCULAR VOLUME 86.5 fL (81.0-99.0); MEAN PLATELET VOLUME 9.6 fl (7.4-10.4); PLATELET 167 x1000/uL (130-400); RED BLOOD CELL COUNT 1.45 mill/uL (4.2-5.4); RED CELL DISTRIBUTION WIDTH 22.8 % (11.6-14.6)
[2017-06-27 10:39] LABS: INR 3.3; PROTHROMBIN TIME 34.3 sec (9.4-11.6)
[2017-06-27 10:42] LABS: AMMONIA 358 uMol/L (<32); HEMATOCRIT. 12.6 % (36.0-48.0); HEMOGLOBIN. 4.3 g/dL (12.0-16.0)
[2017-06-27 10:42] LABS: CLARITY URINE CLOUDY (CLEAR); COLOR URINE DARK YELLOW (YELLOW); GLUCOSE URINE NEGATIVE (NEGATIVE); KETONES URINE NEGATIVE (NEGATIVE); LEUKOCYTE ESTERASE URINE 1+ (NEGATIVE); NITRITE URINE POSITIVE (NEGATIVE); OCCULT BLOOD URINE TRACE (NEGATIVE); PH URINE 5.5 (4.5-8.0); PROTEIN URINE 1+ (NEGATIVE); SPECIFIC GRAVITY URINE 1.018 (1.005-1.030); UROBILINOGEN URINE 0.2 E.U./dL (0.2-1.0)
[2017-06-27 10:43] LABS: TROPONIN I < 0.02 ng/mL (0.00-0.04)
[2017-06-27] MEDS ORDERED: MIDAZOLAM HCL 50 MG in DEXTROSE 5% WATER 40 ML IV ONE (10:45)
[2017-06-27] MEDS ORDERED: LACTULOSE 20G/30ML UDC PO ONE (10:45)
[2017-06-27] MEDS ORDERED: MIDAZOLAM HCL 50 MG in DEXTROSE 5% WATER 40 ML IV NR (11:00)
[2017-06-27 11:07] LABS: NUCLEATED RED BLOOD CELLS 11 /100 WBC; PLATELET ESTIMATE NORMAL
[2017-06-27] MEDS ORDERED: ONDANSETRON HCL 4MG/2ML VIAL IV PRN (13:00)
[2017-06-27] MEDS ORDERED: ACETAMINOPHEN 650MG SUPP PR PRN (13:00)
[2017-06-27] MEDS ORDERED: IPRATROPIUM/ALBUTEROL 0.5-3(2.5)MG/3ML NEB INH PRN (13:00)
[2017-06-27 13:49] LABS: BG BASE EXCESS -14.1 mmol/L (-2.0-2.0); BG CARBOXYHEMOGLOBIN 2.9 % (0.5-1.5); BG DEOXYHEMOGLOBIN 0.3 % (0.0-5.0); BG FRACTION INSPIRED OXYGEN 100; BG HCO3 ACT 11.8 mmol/L (22.0-26.0); BG METHEMOGLOBIN 0.7 % (0.0-1.5); BG OXYGEN SATURATION 99.7 % (92.0-98.5); BG OXYHEMOGLOBIN 96.1 % (94.0-97.0); BG PCO2 27.5 mmHg (35.0-45.0); BG PH 7.252 (7.350-7.450); BG SAMPLE SITE RIGHT RADIAL; BG TIDAL VOLUME(mL) 500 mL; BG TOTAL HEMOGLOBIN 5.4 g/dL (12.0-18.0); BG VENT MODE VENT - A/C; BG VENT RATE 14 set
[2017-06-27] MEDS ORDERED: METRONIDAZOLE 500 MG PREMIX 100 ML IV SCH (14:00)
[2017-06-27] MEDS ORDERED: OCTREOTIDE 1,000 MCG in SODIUM CHLORIDE 0.9% 100 ML IV SCH (14:00)
[2017-06-27] MEDS ORDERED: PANTOPRAZOLE 80 MG in SODIUM CHLORIDE 0.9% 100 ML IV SCH (14:00)
[2017-06-27] MEDS ORDERED: OCTREOTIDE ACETATE 100 MCG/ML 1ML IV NR (14:00)
[2017-06-27] MEDS: DEXT 5%/0.9% NACL 1,000 ML IV SCH (14:03)
[2017-06-27] MEDS ORDERED: OCTREOTIDE ACETATE 50 MCG/ML 1ML IV NR (14:07)
[2017-06-27] MEDS: ALBUMIN HUMAN 25GM/100ML (25%) IV SCH ×2 (14:14→21:28)
[2017-06-27] MEDS: CEFTRIAXONE 1 G PREMIX 50 ML IV SCH (14:21)
[2017-06-27 14:26] LABS: AMYLASE 127 IU/L (25-115)
[2017-06-27] MEDS ORDERED: SODIUM BICARBONATE 8.4% 1 MEQ/ML 50ML SYR IV NR (14:30)
[2017-06-27] MEDS: METRONIDAZOLE 500 MG PREMIX 100 ML IV SCH (15:54)
[2017-06-27] MEDS: IPRATROPIUM/ALBUTEROL 0.5-3(2.5)MG/3ML NEB HHN SCH ×2 (16:24→20:48)
[2017-06-27] MEDS: NOREPINEPHRINE 4 MG in DEXT 5% WATER 246 ML IV PRN (17:05)
[2017-06-27 17:49] LABS: BG CARBOXYHEMOGLOBIN 2.1 % (0.5-1.5); BG HCO3 ACT 13.3 mmol/L (22.0-26.0); BG METHEMOGLOBIN 0.1 % (0.0-1.5); BG OXYHEMOGLOBIN 97.8 % (94.0-97.0); BG PCO2 23.8 mmHg (35.0-45.0); BG PH 7.366 (7.350-7.450); BG PO2 422.8 mmHg (75.0-100.0); BG SAMPLE SITE RIGHT RADIAL; BG TIDAL VOLUME(mL) 550 mL; BG TOTAL HEMOGLOBIN 6.3 g/dL (12.0-18.0); BG VENT MODE VENT - A/C; BG VENT RATE 14 set
[2017-06-27] MEDS: PANTOPRAZOLE SODIUM 40 MG/VIAL IV SCH (18:37)
[2017-06-27] MEDS: OCTREOTIDE 1,000 MCG in SODIUM CHLORIDE 0.9% 100 ML IV SCH (19:30)
[2017-06-27] MEDS ORDERED: PHYTONADIONE 10MG/ML AMP SUBCUT NR (20:00)
[2017-06-27] MEDS: RIFAXIMIN 550 MG TABLET PO SCH (20:27)
[2017-06-27] MEDS: LACTULOSE 20G/30ML UDC PO SCH (21:28)
[2017-06-27 21:54] LABS: CHLORIDE 108 mEq/L (98-107)
[2017-06-27 21:55] LABS: BASOPHILS % 0.2 % (0.0-2.0); EOSINOPHILS % 0.2 % (0.0-5.0); HEMATOCRIT. 25.4 % (36.0-48.0); HEMOGLOBIN. 8.9 g/dL (12.0-16.0); LYMPHOCYTES % 19.5 % (20.0-50.0); MEAN CORPUSCULAR HEMOGLOBIN 30.6 pg (28.0-32.0); MEAN CORPUSCULAR VOLUME 87.4 fL (81.0-99.0); MEAN PLATELET VOLUME 9.6 fl (7.4-10.4); MONOCYTES % 6.3 % (2.0-8.0); NEUTROPHILS % 73.8 % (40.0-76.0); PLATELET 142 x1000/uL (130-400); RED BLOOD CELL COUNT 2.91 mill/uL (4.2-5.4); RED CELL DISTRIBUTION WIDTH 16.6 % (11.6-14.6)
[2017-06-27] MEDS: PROPOFOL 10MG/ML 100ML 100 ML IV PRN (21:55)
[2017-06-27 21:59] LABS: CARBON DIOXIDE 15 mEq/L (21-32)
[2017-06-28] VITALS (103 sets, daily range): BP systolic 82–153; BP diastolic 35–88
[2017-06-28] MEDS: METRONIDAZOLE 500 MG PREMIX 100 ML IV SCH ×4 (00:33→23:21)
[2017-06-28] MEDS: IPRATROPIUM/ALBUTEROL 0.5-3(2.5)MG/3ML NEB HHN SCH ×6 (00:35→20:32)
[2017-06-28] MEDS: DEXT 5%/0.9% NACL 1,000 ML IV SCH ×2 (01:28→16:00)
[2017-06-28 03:00] LABS: INR 1.9; PROTHROMBIN TIME 20.1 sec (9.4-11.6)
[2017-06-28] MEDS: NOREPINEPHRINE 4 MG in DEXT 5% WATER 246 ML IV PRN ×2 (03:17→15:58)
[2017-06-28] MEDS ORDERED: PHYTONADIONE 10MG/ML AMP SUBCUT NR (05:00)
[2017-06-28 05:33] LABS: AMMONIA 126 uMol/L (<32)
[2017-06-28 05:36] LABS: BASOPHILS % 0.3 % (0.0-2.0); EOSINOPHILS % 0.2 % (0.0-5.0); HEMATOCRIT. 22.3 % (36.0-48.0); HEMOGLOBIN. 7.9 g/dL (12.0-16.0); LYMPHOCYTES % 14.2 % (20.0-50.0); MEAN CORPUSCULAR HEMOGLOBIN 30.5 pg (28.0-32.0); MEAN CORPUSCULAR VOLUME 85.8 fL (81.0-99.0); MEAN PLATELET VOLUME 8.9 fl (7.4-10.4); MONOCYTES % 9.5 % (2.0-8.0); NEUTROPHILS % 75.8 % (40.0-76.0); PLATELET 139 x1000/uL (130-400)
[2017-06-28 05:40] LABS: INR 1.9; PARTIAL THROMBOPLASTIN TIME 44.1 sec (23.4-31.0); PROTHROMBIN TIME 19.7 sec (9.4-11.6)
[2017-06-28] MEDS: ALBUMIN HUMAN 25GM/100ML (25%) IV SCH (05:47)
[2017-06-28] MEDS: LACTULOSE 20G/30ML UDC PO SCH ×3 (05:47→22:13)
[2017-06-28 06:17] LABS: CARBON DIOXIDE 11 mEq/L (21-32); CHLORIDE 107 mEq/L (98-107)
[2017-06-28] MEDS: PROPOFOL 10MG/ML 100ML 100 ML IV PRN ×5 (06:39→23:21)
[2017-06-28 07:36] LABS: BG BASE EXCESS -11.9 mmol/L (-2.0-2.0); BG CARBOXYHEMOGLOBIN 2.9 % (0.5-1.5); BG FRACTION INSPIRED OXYGEN 50; BG HCO3 ACT 11.3 mmol/L (22.0-26.0); BG METHEMOGLOBIN 0.4 % (0.0-1.5); BG OXYHEMOGLOBIN 96.7 % (94.0-97.0); BG PCO2 17.8 mmHg (35.0-45.0); BG PH 7.421 (7.350-7.450); BG PO2 216.5 mmHg (75.0-100.0); BG SAMPLE SITE RIGHT RADIAL; BG TIDAL VOLUME(mL) 550 mL; BG TOTAL HEMOGLOBIN 6.8 g/dL (12.0-18.0); BG VENT MODE VENT - A/C; BG VENT RATE 14 set
[2017-06-28] MEDS: PANTOPRAZOLE SODIUM 40 MG/VIAL IV SCH ×2 (09:11→20:52)
[2017-06-28] MEDS: RIFAXIMIN 550 MG TABLET PO SCH ×2 (09:14→20:52)
[2017-06-28] MEDS: OCTREOTIDE 1,000 MCG in SODIUM CHLORIDE 0.9% 100 ML IV SCH (10:07)
[2017-06-28] MEDS ORDERED: FUROSEMIDE 40MG/4ML VIAL IVP SCH (10:30)
[2017-06-28] MEDS ORDERED: LIDOCAINE HCL 1% 20ML VIAL (Pyxis) INJ ONE (10:44)
[2017-06-28] MEDS ORDERED: SODIUM BICARBONATE 4% (2.4MEQ) 5ML VIAL IV ONE (10:45)
[2017-06-28 13:03] LABS: HEMATOCRIT 25.9 % (36.0-48.0); HEMOGLOBIN 9.2 g/dL (12.0-16.0)
[2017-06-28 13:12] LABS: INR 1.8
[2017-06-28] MEDS: SUCRALFATE 1 G/10 ML UDC NG SCH ×3 (13:41→23:21)
[2017-06-28] MEDS: CEFTRIAXONE 1 G PREMIX 50 ML IV SCH (13:41)
[2017-06-28] MEDS: NOREPINEPHRINE 16 MG in DEXT 5% WATER 234 ML IV PRN (19:11)
[2017-06-28 19:16] LABS: HEMATOCRIT 26.6 % (36.0-48.0); HEMOGLOBIN 9.5 g/dL (12.0-16.0)
[2017-06-28 19:26] LABS: PROTHROMBIN TIME 20.6 sec (9.4-11.6)
[2017-06-29] VITALS (87 sets, daily range): BP systolic 100–126; BP diastolic 47–83
[2017-06-29 00:25] LABS: HEMATOCRIT 28.7 % (36.0-48.0); HEMOGLOBIN 10.2 g/dL (12.0-16.0)
[2017-06-29 00:32] LABS: PROTHROMBIN TIME 20.7 sec (9.4-11.6)
[2017-06-29] MEDS: IPRATROPIUM/ALBUTEROL 0.5-3(2.5)MG/3ML NEB HHN SCH ×6 (00:39→20:32)
[2017-06-29] MEDS: PROPOFOL 10MG/ML 100ML 100 ML IV PRN (04:41)
[2017-06-29] MEDS: OCTREOTIDE 1,000 MCG in SODIUM CHLORIDE 0.9% 100 ML IV SCH (05:14)
[2017-06-29] MEDS: DEXT 5%/0.9% NACL 1,000 ML IV SCH (05:31)
[2017-06-29] MEDS: SUCRALFATE 1 G/10 ML UDC NG SCH ×4 (05:31→23:55)
[2017-06-29] MEDS: LACTULOSE 20G/30ML UDC PO SCH ×3 (05:31→21:23)
[2017-06-29 06:02] LABS: BASOPHILS % 0.3 % (0.0-2.0); EOSINOPHILS % 0.5 % (0.0-5.0); HEMATOCRIT. 27.2 % (36.0-48.0); HEMOGLOBIN. 9.7 g/dL (12.0-16.0); LYMPHOCYTES % 13.8 % (20.0-50.0); MEAN CORPUSCULAR HEMOGLOBIN 31.1 pg (28.0-32.0); MEAN CORPUSCULAR VOLUME 87.5 fL (81.0-99.0); MEAN PLATELET VOLUME 9.7 fl (7.4-10.4); MONOCYTES % 8.4 % (2.0-8.0); PLATELET 121 x1000/uL (130-400); RED BLOOD CELL COUNT 3.11 mill/uL (4.2-5.4); RED CELL DISTRIBUTION WIDTH 16.4 % (11.6-14.6)
[2017-06-29 06:27] LABS: CHLORIDE 107 mEq/L (98-107)
[2017-06-29 06:44] LABS: CARBON DIOXIDE 15 mEq/L (21-32)
[2017-06-29] MEDS: RIFAXIMIN 550 MG TABLET PO SCH ×2 (08:08→21:23)
[2017-06-29] MEDS: PANTOPRAZOLE SODIUM 40 MG/VIAL IV SCH ×2 (08:08→21:23)
[2017-06-29] MEDS: METRONIDAZOLE 500 MG PREMIX 100 ML IV SCH ×2 (08:09→15:50)
[2017-06-29] MEDS: LEVOFLOXACIN 500MG PREMIX 100 ML IV SCH (08:09)
[2017-06-29] MEDS ORDERED: LEVOFLOXACIN 500MG PREMIX 100 ML IV SCH (09:00)
[2017-06-29 09:19] LABS: BG BASE EXCESS -10.6 mmol/L (-2.0-2.0); BG CARBOXYHEMOGLOBIN 0.3 % (0.5-1.5); BG FRACTION INSPIRED OXYGEN 40; BG HCO3 ACT 13.9 mmol/L (22.0-26.0); BG METHEMOGLOBIN 0.3 % (0.0-1.5); BG OXYHEMOGLOBIN 98.4 % (94.0-97.0); BG PCO2 26.6 mmHg (35.0-45.0); BG PH 7.336 (7.350-7.450); BG PO2 159.6 mmHg (75.0-100.0); BG SAMPLE SITE RIGHT BRACHIAL; BG TIDAL VOLUME(mL) 550 mL; BG TOTAL HEMOGLOBIN 9.9 g/dL (12.0-18.0); BG VENT MODE VENT - A/C; BG VENT RATE 14 set
[2017-06-29] MEDS ORDERED: MORPHINE SULFATE 2 MG/ML CPJ (NOT FOR IM USE) IV PRN (10:15)
[2017-06-29] MEDS ORDERED: DIPHENHYDRAMINE 50MG/ML VIAL IV PRN (10:15)
[2017-06-29] MEDS ORDERED: POTASSIUM CHLORIDE INJ 40 MEQ in DEXT 5% WATER 250 ML IV NR (11:30)
[2017-06-29] MEDS: FLUCONAZOLE 200 MG/100ML BAG 100 ML IV SCH (11:50)
[2017-06-29 12:10] LABS: HEMATOCRIT 29.5 % (36.0-48.0); HEMOGLOBIN 10.2 g/dL (12.0-16.0)
[2017-06-29 12:19] LABS: AMMONIA 118 uMol/L (<32)
[2017-06-29] MEDS: CITRIC ACID/SODIUM CITRATE SOLN 30ML UDC NG SCH ×2 (14:15→18:23)
[2017-06-29] MEDS: CEFTRIAXONE 1 G PREMIX 50 ML IV SCH (14:15)
[2017-06-29] MEDS: MIDODRINE HCL 5MG TABLET NG SCH ×2 (14:16→18:25)
[2017-06-29] MEDS: NOREPINEPHRINE 16 MG in DEXT 5% WATER 234 ML IV PRN (14:26)
[2017-06-29] MEDS ORDERED: ALBUMIN HUMAN 25GM/100ML (25%) IV NR (15:30)
[2017-06-29] MEDS: SODIUM ACETATE 150 MEQ in DEXTROSE 5% WATER 1,000 ML IV SCH (15:37)
[2017-06-29 18:57] LABS: HEMATOCRIT 28.2 % (36.0-48.0); HEMOGLOBIN 9.8 g/dL (12.0-16.0)
[2017-06-30] VITALS (85 sets, daily range): BP systolic 92–129; BP diastolic 54–84
[2017-06-30] MEDS: IPRATROPIUM/ALBUTEROL 0.5-3(2.5)MG/3ML NEB HHN SCH ×6 (00:49→20:12)
[2017-06-30 01:09] LABS: HEMATOCRIT 26.5 % (36.0-48.0); HEMOGLOBIN 9.3 g/dL (12.0-16.0)
[2017-06-30] MEDS: LACTULOSE 20G/30ML UDC PO SCH ×3 (05:13→21:55)
[2017-06-30] MEDS: SUCRALFATE 1 G/10 ML UDC NG SCH ×4 (05:13→23:00)
[2017-06-30] MEDS: METRONIDAZOLE 500 MG PREMIX 100 ML IV SCH ×2 (05:13→17:24)
[2017-06-30 05:31] LABS: BASOPHILS % 0.7 % (0.0-2.0); EOSINOPHILS % 0.2 % (0.0-5.0); HEMATOCRIT. 26.7 % (36.0-48.0); HEMOGLOBIN. 9.4 g/dL (12.0-16.0); LYMPHOCYTES % 11.6 % (20.0-50.0); MEAN CORPUSCULAR HEMOGLOBIN 30.8 pg (28.0-32.0); MEAN CORPUSCULAR VOLUME 87.1 fL (81.0-99.0); MEAN PLATELET VOLUME 9.6 fl (7.4-10.4); MONOCYTES % 8.3 % (2.0-8.0); NEUTROPHILS % 79.2 % (40.0-76.0); PLATELET 104 x1000/uL (130-400); RED BLOOD CELL COUNT 3.06 mill/uL (4.2-5.4); RED CELL DISTRIBUTION WIDTH 16.4 % (11.6-14.6)
[2017-06-30 05:40] LABS: AMMONIA 93 uMol/L (<32)
[2017-06-30 06:04] LABS: CARBON DIOXIDE 17 mEq/L (21-32); CHLORIDE 107 mEq/L (98-107)
[2017-06-30] MEDS: RIFAXIMIN 550 MG TABLET PO SCH ×2 (09:08→21:56)
[2017-06-30] MEDS: PANTOPRAZOLE SODIUM 40 MG/VIAL IV SCH ×2 (09:08→21:55)
[2017-06-30] MEDS: CITRIC ACID/SODIUM CITRATE SOLN 30ML UDC NG SCH ×3 (09:09→17:24)
[2017-06-30] MEDS: MIDODRINE HCL 5MG TABLET NG SCH ×3 (09:09→17:25)
[2017-06-30] MEDS: POTASSIUM CHLORIDE 20MEQ/PACKET PO SCH (09:10)
[2017-06-30] MEDS: FLUCONAZOLE 200 MG/100ML BAG 100 ML IV SCH (11:55)
[2017-06-30] MEDS: SODIUM ACETATE 150 MEQ in DEXTROSE 5% WATER 1,000 ML IV SCH (11:55)
[2017-06-30] MEDS ORDERED: ALBUMIN HUMAN 25GM/100ML (25%) IV NR (13:45)
[2017-06-30] MEDS: CEFTRIAXONE 1 G PREMIX 50 ML IV SCH (14:33)
[2017-06-30] MEDS ORDERED: RIFAXIMIN 550 MG TABLET PO SCH (21:00)
[2017-06-30] MEDS: NOREPINEPHRINE 16 MG in DEXT 5% WATER 234 ML IV PRN (22:17)
[2017-07-01] VITALS (93 sets, daily range): BP systolic 83–125; BP diastolic 47–78
[2017-07-01] MEDS: IPRATROPIUM/ALBUTEROL 0.5-3(2.5)MG/3ML NEB HHN SCH ×6 (00:09→23:35)
[2017-07-01 05:45] LABS: BASOPHILS % 0.4 % (0.0-2.0); EOSINOPHILS % 0.5 % (0.0-5.0); HEMATOCRIT. 26.5 % (36.0-48.0); HEMOGLOBIN. 9.2 g/dL (12.0-16.0); LYMPHOCYTES % 13.4 % (20.0-50.0); MEAN CORPUSCULAR HEMOGLOBIN 30.3 pg (28.0-32.0); MEAN CORPUSCULAR VOLUME 87.8 fL (81.0-99.0); MEAN PLATELET VOLUME 9.7 fl (7.4-10.4); NEUTROPHILS % 78.7 % (40.0-76.0); PLATELET 91 x1000/uL (130-400); RED BLOOD CELL COUNT 3.02 mill/uL (4.2-5.4); RED CELL DISTRIBUTION WIDTH 16.7 % (11.6-14.6)
[2017-07-01 06:27] LABS: CARBON DIOXIDE 18 mEq/L (21-32); CHLORIDE 107 mEq/L (98-107); PHOSPHORUS 5.5 mg/dL (2.5-4.9)
[2017-07-01] MEDS: LACTULOSE 20G/30ML UDC PO SCH ×3 (06:37→21:44)
[2017-07-01] MEDS: SUCRALFATE 1 G/10 ML UDC NG SCH ×3 (06:37→18:00)
[2017-07-01] MEDS: METRONIDAZOLE 500 MG PREMIX 100 ML IV SCH ×2 (06:38→18:03)
[2017-07-01] MEDS: LEVOFLOXACIN 500MG PREMIX 100 ML IV SCH (07:45)
[2017-07-01 07:50] LABS: AMMONIA 95 uMol/L (<32)
[2017-07-01 08:36] LABS: BG BASE EXCESS -6.7 mmol/L (-2.0-2.0); BG DEOXYHEMOGLOBIN 0.7 % (0.0-5.0); BG FRACTION INSPIRED OXYGEN 40; BG HCO3 ACT 17.2 mmol/L (22.0-26.0); BG METHEMOGLOBIN 0.3 % (0.0-1.5); BG OXYGEN SATURATION 99.3 % (92.0-98.5); BG PCO2 28.2 mmHg (35.0-45.0); BG PH 7.403 (7.350-7.450); BG SAMPLE SITE RIGHT BRACHIAL; BG TIDAL VOLUME(mL) 550 mL; BG TOTAL HEMOGLOBIN 8.1 g/dL (12.0-18.0); BG VENT MODE VENT - A/C; BG VENT RATE 14 set
[2017-07-01] MEDS: RIFAXIMIN 550 MG TABLET PO SCH ×2 (09:15→21:44)
[2017-07-01] MEDS: PANTOPRAZOLE SODIUM 40 MG/VIAL IV SCH ×2 (09:15→21:44)
[2017-07-01] MEDS: POTASSIUM CHLORIDE 20MEQ/PACKET PO SCH (09:15)
[2017-07-01] MEDS: CITRIC ACID/SODIUM CITRATE SOLN 30ML UDC NG SCH ×3 (09:15→17:55)
[2017-07-01] MEDS: MIDODRINE HCL 5MG TABLET NG SCH ×3 (09:16→17:55)
[2017-07-01] MEDS: SODIUM ACETATE 150 MEQ in DEXTROSE 5% WATER 1,000 ML IV SCH (10:07)
[2017-07-01] MEDS: MICAFUNGIN 100MG in NORMAL SALINE 100ML IV SCH (13:43)
[2017-07-01] MEDS: CEFTRIAXONE 1 G PREMIX 50 ML IV SCH (14:20)
[2017-07-02] VITALS (81 sets, daily range): BP systolic 74–152; BP diastolic 40–115
[2017-07-02] MEDS: SUCRALFATE 1 G/10 ML UDC NG SCH ×4 (00:16→17:13)
[2017-07-02] MEDS: IPRATROPIUM/ALBUTEROL 0.5-3(2.5)MG/3ML NEB HHN SCH ×4 (04:23→15:05)
[2017-07-02] MEDS: SODIUM ACETATE 150 MEQ in DEXTROSE 5% WATER 1,000 ML IV SCH (04:49)
[2017-07-02] MEDS: LACTULOSE 20G/30ML UDC PO SCH ×2 (05:13→12:52)
[2017-07-02] MEDS: METRONIDAZOLE 500 MG PREMIX 100 ML IV SCH ×2 (05:13→17:14)
[2017-07-02 08:08] LABS: AMMONIA 78 uMol/L (<32)
[2017-07-02 09:17] LABS: BASOPHILS % 0.4 % (0.0-2.0); EOSINOPHILS % 0.3 % (0.0-5.0); HEMATOCRIT. 25.2 % (36.0-48.0); HEMOGLOBIN. 8.7 g/dL (12.0-16.0); LYMPHOCYTES % 10.5 % (20.0-50.0); MEAN CORPUSCULAR HEMOGLOBIN 30.3 pg (28.0-32.0); MEAN CORPUSCULAR VOLUME 87.7 fL (81.0-99.0); MONOCYTES % 6.7 % (2.0-8.0); NEUTROPHILS % 82.1 % (40.0-76.0); RED BLOOD CELL COUNT 2.87 mill/uL (4.2-5.4); RED CELL DISTRIBUTION WIDTH 17.1 % (11.6-14.6)
[2017-07-02 09:37] LABS: CARBON DIOXIDE 22 mEq/L (21-32); CHLORIDE 109 mEq/L (98-107); PHOSPHORUS 5.9 mg/dL (2.5-4.9)
[2017-07-02] MEDS ORDERED: PHENYLEPHRINE HCL 1% 15 ML NASAL SPRAY BOTHNSTRLS PRN (10:00)
[2017-07-02] MEDS: PANTOPRAZOLE SODIUM 40 MG/VIAL IV SCH (10:04)
[2017-07-02] MEDS: MIDODRINE HCL 5MG TABLET NG SCH ×3 (10:05→17:14)
[2017-07-02] MEDS: CITRIC ACID/SODIUM CITRATE SOLN 30ML UDC NG SCH ×3 (10:05→17:14)
[2017-07-02] MEDS: POTASSIUM CHLORIDE 20MEQ/PACKET PO SCH (10:05)
[2017-07-02] MEDS: RIFAXIMIN 550 MG TABLET PO SCH (10:05)
[2017-07-02 10:08] LABS: PLATELET 78 x1000/uL (130-400)
[2017-07-02 10:09] LABS: MEAN PLATELET VOLUME 10.3 fl (7.4-10.4)
[2017-07-02] MEDS: MICAFUNGIN 100MG in NORMAL SALINE 100ML IV SCH (12:16)
[2017-07-02] MEDS: CEFTRIAXONE 1 G PREMIX 50 ML IV SCH (14:24)
[2017-07-02] MEDS ORDERED: HYDROMORPHONE HCL/PF 2MG/ML CPJ IV PRN (18:30)
[2017-07-02] MEDS ORDERED: FENTANYL CITRATE/PF 50MCG/ML 2ML VIAL IV ONE (18:45)
[2017-07-02] MEDS ORDERED: LORAZEPAM 2MG/ML CPJ IV PRN (18:45)
[2017-07-02] MEDS ORDERED: FENTANYL CITRATE/PF 500 MCG in SODIUM CHLORIDE 0.9% 40 ML IV PRN (18:45)
[2017-07-02] MEDS ORDERED: OXYMETAZOLINE HCL NASAL SPRAY 15ML BOTHNSTRLS SCH (21:00)
[2017-07-03] VITALS (47 sets, daily range): BP systolic 59–97; BP diastolic 33–64
[2017-07-04] VITALS (40 sets, daily range): BP systolic 54–76; BP diastolic 28–43
[2017-07-04] MEDS: FENTANYL CITRATE/PF 500 MCG in SODIUM CHLORIDE 0.9% 40 ML IV PRN ×2 (05:42→17:44)
[2017-07-05] VITALS: BP 63/31
[2017-07-05 00:30] VITALS: BP 60/32
== END 2017-07-05 01:47 | disposition expired | DRG 720 ==
LOC: ER 09:19 → EDBEDREQSVC 10:18 → EDBEDREQ 11:00 → ENRESERV 11:39 → EDBEDREQ 11:47 → EDBEDREQTM 11:47 → MICUNO 12:27 → MICUSO 07-03 23:13
PROVIDERS: ADMIT Internal Medicine; ATTEND Internal Medicine
PROC: 5A1955Z Respiratory Ventilation, Greater than 96 Consecutive Hours (ICD-10-PCS; 2017-06-27)
PROC: 30233L1 Transfusion of Nonautologous Fresh Plasma into Peripheral Vein, Percutaneous Approach (ICD-10-PCS; 2017-06-27)
PROC: 30233N1 Transfusion of Nonautologous Red Blood Cells into Peripheral Vein, Percutaneous Approach (ICD-10-PCS; 2017-06-27)
PROC: 30233K1 Transfusion of Nonautologous Frozen Plasma into Peripheral Vein, Percutaneous Approach (ICD-10-PCS; 2017-06-27)
PROC: 0BH17EZ Insertion of Endotracheal Airway into Trachea, Via Natural or Artificial Opening (ICD-10-PCS; 2017-06-27)
PROC: 02H633Z Insertion of Infusion Device into Right Atrium, Percutaneous Approach (ICD-10-PCS; 2017-06-28)
PROC: B244ZZZ Ultrasonography of Right Heart (ICD-10-PCS; 2017-06-28)
PROC: 0DJ08ZZ Inspection of Upper Intestinal Tract, Via Natural or Artificial Opening Endoscopic (ICD-10-PCS; principal; 2017-06-28 11:30)
DX: A41.9 Sepsis, unspecified organism (principal); J96.01 Acute respiratory failure with hypoxia; N17.0 Acute kidney failure with tubular necrosis; R65.21 Severe sepsis with septic shock; E43 Unspecified severe protein-calorie malnutrition; D68.9 Coagulation defect, unspecified; K22.11 Ulcer of esophagus with bleeding; E87.2 Acidosis; K25.4 Chronic or unspecified gastric ulcer with hemorrhage; Z51.5 Encounter for palliative care; J44.9 Chronic obstructive pulmonary disease, unspecified; F10.20 Alcohol dependence, uncomplicated; K72.90 Hepatic failure, unspecified without coma; I85.00 Esophageal varices without bleeding; Z66 Do not resuscitate; D69.6 Thrombocytopenia, unspecified; I12.9 Hypertensive chronic kidney disease with stage 1 through stage 4 chronic kidney disease, or unspecified chronic kidney disease; K31.89 Other diseases of stomach and duodenum; B37.49 Other urogenital candidiasis; D25.9 Leiomyoma of uterus, unspecified; D50.9 Iron deficiency anemia, unspecified; E78.1 Pure hyperglyceridemia; E83.52 Hypercalcemia; G40.909 Epilepsy, unspecified, not intractable, without status epilepticus; E87.6 Hypokalemia; R74.0 Nonspecific elevation of levels of transaminase and lactic acid dehydrogenase [LDH]; Y90.9 Presence of alcohol in blood, level not specified; F20.9 Schizophrenia, unspecified; K70.31 Alcoholic cirrhosis of liver with ascites; K85.90 Acute pancreatitis without necrosis or infection, unspecified; N18.9 Chronic kidney disease, unspecified; Z82.49 Family history of ischemic heart disease and other diseases of the circulatory system; Z83.3 Family history of diabetes mellitus; Z86.73 Personal history of transient ischemic attack (TIA), and cerebral infarction without residual deficits; Z79.899 Other long term (current) drug therapy; Z88.6 Allergy status to analgesic agent; Z88.8 Allergy status to other drugs, medicaments and biological substances; Z80.9 Family history of malignant neoplasm, unspecified; Z68.33 Body mass index [BMI] 33.0-33.9, adult; K29.71 Gastritis, unspecified, with bleeding
CPT/HCPCS: 36415; 36569; 36600; 70450; 71010; 76770; 76937; 80053; 81001; 82140; 82150; 82375; 82805; 82962; 83036; 83605; 83690; 83735; 83880; 84100; 84300; 84478; 84484; 85014; 85018; 85025; 85610; 85730; 86850; 86870; 86880; 86900; 86920; 86927; 87040; 87070; 87086; 93005; 93970; 94002; 94003; 94640; 94664; 96365; 96375; 99291; A6261; C1725; C9113; J0330; J0696; J1450; J1940; J1956; J2248; J2250; J2354; J2543; J2704; J3010; J3430; J3480; J3490; J7030; J7040; J7042; J7050; J7060; J7070; J7620; P9016; P9017; P9047; A4315